=== PATIENT | female | born 1985 | race Caucasian/White ===

== ENCOUNTER 2019-04-06 16:34 | Emergency (ER) | payer SELFPAY ==
[~2019-04-06] VITALS: Ht 157.5 cm; Wt 90.0 kg
[~2019-04-06 16:34] MED LIST: AMOXICILLIN500 MG PO; BACTRIM DS1 TAB PO; CEPHALEXIN500 MG OR; CEPHALEXIN500 MG PO; LORTAB 5 OR; ULTRAM50 M1 PO
[2019-04-06] MEDS ORDERED: TORADOL PO (17:47)
[2019-04-06 17:50] VITALS: BP 135/84
== END 2019-04-06 17:50 | disposition home or self-care (01) | DRG 605 ==
LOC: ED 16:34
DX: S80.11XA Contusion of right lower leg, initial encounter (principal); W16.522A Jumping or diving into swimming pool striking bottom causing other injury, initial encounter; Y93.11 Activity, swimming; Y92.095 Swimming-pool of other non-institutional residence as the place of occurrence of the external cause

== ENCOUNTER 2020-07-03 07:15 | Emergency (ER) | payer MEDICAID ==
[~2020-07-03] VITALS: Ht 157.5 cm; Wt 88.4 kg
[~2020-07-03 07:15] MED LIST changes: +TORADOL PO
[2020-07-03] MEDS ORDERED: AMOXICILLIN500 MG PO (08:08)
[2020-07-03 08:14] VITALS: BP 123/74
== END 2020-07-03 08:20 | disposition home or self-care (01) ==
LOC: ED 07:15
DX: J02.9 Acute pharyngitis, unspecified (principal)

== ENCOUNTER 2020-11-26 09:56 | Emergency (ER) | payer MEDICAID ==
[~2020-11-26] VITALS: Ht 157.5 cm; Wt 81.0 kg
[2020-11-26] MEDS ORDERED: AMOXICILLIN500 MG PO (11:04)
[2020-11-26 11:27] VITALS: BP 146/90
== END 2020-11-26 11:34 | disposition home or self-care (01) ==
LOC: ED 09:56
DX: J02.9 Acute pharyngitis, unspecified (principal); Z20.818 Contact with and (suspected) exposure to other bacterial communicable diseases

== ENCOUNTER 2021-05-03 08:48 | Day surgery (SDC) | payer MEDICAID ==
[~2021-05-03] VITALS: Ht 157.5 cm; Wt 89.4 kg
[~2021-05-03 08:48] MED LIST changes: +CVS IBUPROFEN200 M3 PO; +DIFLUCAN150 MG PO; +KEFLEX500 M1 PO; +OMEPRAZOLE20 MG PO; +PREDNISONE10 MG PO; +PREDNISONE50 MG PO; +TINACTIN13 EX
[2021-05-03] MEDS ORDERED: ADVIL200 MG PO (09:08)
[2021-05-03 11:37] VITALS: BP 93/54
--- NOTE | 2021-05-03 16:04 | NUR ---
PER PHYSICIAN, ADVISED PATIENT OF PROCEDURE FINDINGS. PATIENT STATES DOING WELL, AT HOME RESTING, TOLERATED PROCEDURE WELL. VOICED NO CONCERNS AT TIME OF CALL. WILL FOLLOW UP IN OFFICE IF NEEDED. FOLLOW UP WITH PRIMARY CARE FOR CONTINUITY OF CARE.
== END 2021-05-03 11:48 | disposition home or self-care (01) ==
LOC: ENDO 08:48 → ORM 12:00
PROVIDERS: ATTEND Surgery
DX: R13.10 Dysphagia, unspecified (principal); K59.00 Constipation, unspecified; Z83.79 Family history of other diseases of the digestive system

== ENCOUNTER 2023-06-20 13:18 | Emergency (ER) | payer MEDICAID ==
[~2023-06-20] VITALS: Ht 157.5 cm; Wt 87.7 kg
[~2023-06-20 13:18] MED LIST changes: +ACYCLOVIR800 MG PO; +ADVIL200 MG PO; +AMOX/K CLAV875 M1 PO; +MEDDOSEPAK PO; +MUPIROCIN2 % EX
[2023-06-20 13:29] VITALS: BP 111/74
[2023-06-20 13:30] VITALS: BP 123/80
[2023-06-20] MEDS ORDERED: ZYRTEC ALLGY10 M1 PO (13:34)
[2023-06-20] MEDS ORDERED: PREDNISONE20 MG PO (13:34)
[2023-06-20 13:44] VITALS: BP 123/80
== END 2023-06-20 13:48 | disposition home or self-care (01) ==
LOC: ED 13:18
DX: L23.7 Allergic contact dermatitis due to plants, except food (principal)